=== PATIENT | male | born 1955 | race Caucasian/White ===

== ENCOUNTER 2016-03-31 01:34 | Emergency (ER) | payer OTHER ==
[~2016-03-31] VITALS: Ht 180.3 cm; Wt 70.3 kg
[2016-03-31] MEDS ORDERED: NKM (01:46)
[2016-03-31] MEDS ORDERED: Ketorolac 30mg Inj IV ONE (02:15)
[2016-03-31 02:19] LABS: APPEARANCE,URINE CLEAR; BASOPHILS % (AUTO) 0.7 % (0.0-2.0); EOSINOPHILS % (AUTO) 2.1 % (0.0-3.0); KETONES,URINE 1+ (NEGATIVE); LEUKOCYTE ESTERASE ,URINE NEGATIVE (NEGATIVE); LYMPHOCYTES % (AUTO) 16.1 % (20.0-45.0); MEAN CORPUSCULAR HEMOGLOBIN 30.3 PG (27.0-31.0); MEAN CORPUSCULAR HGB CONC 32.8 G/DL (32.0-36.0); MEAN CORPUSCULAR VOLUME 93 FL (80-99); MEAN PLATELET VOLUME 7.1 FL (6.5-10.1); MONOCYTES % (AUTO) 6.9 % (1.0-10.0); NEUTROPHILS % (AUTO) 74.2 % (45.0-75.0); NITRITE,URINE NEGATIVE (NEGATIVE); PH,URINE 6.5 (4.5-8.0); PLATELET COUNT 273 K/UL (150-450); PROTEIN,URINE NEGATIVE (NEGATIVE); RED BLOOD COUNT 4.51 M/UL (4.70-6.10); RED CELL DISTRIBUTION WIDTH 13.3 % (11.6-14.8); UROBILINOGEN,URINE NORMAL MG/DL (0.0-1.0); WHITE BLOOD COUNT 8.9 K/UL (4.8-10.8)
--- NOTE | 2016-03-31 02:21 | Emergency Room Report ---
History of Present Illness General Chief Complaint: Back Pain-No Injury Source: Patient Present Illness HPI Patient presents with right-sided upper back and flank pain for several days. He denies it being positional. At times it is 10/10 - somewhat radiating to lower back/flank. Aching and somewhat sharp. He's had this before and came in 2006 declined workup with angiography/CT. No fever, cough, sore throat, NVD. He states he's had hypertension since he was a teenager. He has never been treated for this. No dysuria, hematuria, rashes, dizziness, headache. No anxiety or depression. He has not seen a physician in between the time seen in 2006. Allergies: Coded Allergies: No Known Allergies (Unverified , 03/31/16) Patient History Past Medical History: see triage record Pertinent Family History: HTN - mother Social History: Reports: smoking Social History Narrative Ramp Supervisor - Reviewed Nursing Documentation: PMH: Agreed, PSxH: Agreed Nursing Documentation-PMH Hx Hypertension: Yes Review of Systems All Other Systems: negative except mentioned in HPI Physical Exam Vital Signs Date Time Temp Pulse Resp B/P Pulse Ox O2 Delivery O2 Flow Rate FiO2 03/31/16 01:37 97.5 92 22 192/112 98 Room Air Sp02 EP Interpretation: reviewed, normal General Appearance: well appearing, no apparent distress, GCS 15, thin Head: normocephalic Eyes: bilateral eye PERRL, bilateral eye normal inspection ENT: moist mucus membranes Neck: supple Respiratory: lungs clear, normal breath sounds, other - some R upper back ( scapular area) muscle tenderness Cardiovascular #1: regular rate, rhythm Cardiovascular #2: 2+ radial (R), 2+ femoral (R), 2+ femoral (L) Gastrointestinal: normal inspection, normal bowel sounds, non tender, no mass, no bruit, non-distended Genitourinary: CVA tenderness (R) - minimal Musculoskeletal: gait/station normal, normal range of motion Neurologic: alert, oriented x3, grossly normal Psychiatric: mood/affect normal - some denial Skin: normal inspection, warm/dry Medical Decision Making Diagnostic Impression: Primary Impression: Back pain Qualified Codes: M54.9 - Dorsalgia, unspecified Additional Impressions: Hypertension Qualified Codes: I10 - Essential (primary) hypertension Refusal of recommended evaluation ER Course Patient presents with severe back pain with uncontrolled hypertension. Ddx: aneurism, AMI, muscle spasm, renal stone, strain, DJD back. Urgent evaluation with labs, xrays. Treated for pain here. Norvasc begun in ED. EKG normal. Labs unremarkable. Tortuous aorta not normal. Discussed need for evaluation of aorta and heart. Patient understands. Still refuses CT chest/abd. Understands risk of . Also discussed need to treat blood pressure. He understands but does not appear that he will be compliant. Patient insists outpatient observation and treatment. Advised of need for own MD. Stated to patient that if he changes his mind, to return to ED. Laboratory Tests Test 03/31/16 02:10 White Blood Count 8.9 K/UL (4.8-10.8) Red Blood Count 4.51 M/UL (4.70-6.10) L Hemoglobin 13.7 G/DL (14.2-18.0) L Hematocrit 41.7 % (42.0-52.0) L Mean Corpuscular Volume 93 FL (80-99) Mean Corpuscular Hemoglobin 30.3 PG (27.0-31.0) Mean Corpuscular Hemoglobin Concent 32.8 G/DL (32.0-36.0) Red Cell Distribution Width 13.3 % (11.6-14.8) Platelet Count 273 K/UL (150-450) Mean Platelet Volume 7.1 FL (6.5-10.1) Neutrophils (%) (Auto) 74.2 % (45.0-75.0) Lymphocytes (%) (Auto) 16.1 % (20.0-45.0) L Monocytes (%) (Auto) 6.9 % (1.0-10.0) Eosinophils (%) (Auto) 2.1 % (0.0-3.0) Basophils (%) (Auto) 0.7 % (0.0-2.0) Prothrombin Time 10.1 SEC (9.30-11.50) Prothrombin Time INR 1.0 (0.9-1.1) PTT 25 SEC (23-33) Urine Color Pale yellow Urine Appearance Clear Urine pH 6.5 (4.5-8.0) Urine Specific [place] 1.015 (1.005-1.035) Urine Protein Negative (NEGATIVE) Urine Glucose (UA) Negative (NEGATIVE) Urine Ketones 1+ (NEGATIVE) H Urine Occult Blood Negative (NEGATIVE) Urine Nitrite Negative (NEGATIVE) Urine Bilirubin Negative (NEGATIVE) Urine Urobilinogen Normal MG/DL (0.0-1.0) Urine Leukocyte Esterase Negative (NEGATIVE) Sodium Level 140 mEQ/L (135-145) Potassium Level 3.8 mEQ/L (3.4-4.9) Chloride Level 99 mEQ/L (98-107) Carbon Dioxide Level 25 mEQ/L (20-30) Anion Gap 16 (5-15) H Blood Urea Nitrogen 16 mg/dL (7-23) Creatinine 1.1 mg/dL (0.7-1.2) Estimate Glomerular Filtration Rate > 60 mL/min (>60) Glucose Level 180 mg/dL (74-106) H Calcium Level 9.3 mg/dL (8.6-10.2) Total Bilirubin 0.4 mg/dL (0.0-1.2) Aspartate Amino Transferase (AST) 10 U/L (5-40) Alanine Aminotransferase (ALT) 5 U/L (3-41) Alkaline Phosphatase 70 U/L (40-129) Total Creatine Kinase 69 U/L (38-174) Troponin I < 0.30 ng/mL (<=0.30) Pro-B-Type Natriuretic Peptide 75 pg/mL (0-125) Total Protein 6.6 g/dL (6.6-8.7) Albumin 4.1 g/dL (3.5-5.2) Globulin 2.5 g/dL Albumin/Globulin Ratio 1.6 (1.0-2.7) Urine Opiates Screen Negative (NEGATIVE) Urine Barbiturates Screen Negative (NEGATIVE) Phencyclidine (PCP) Screen Negative (NEGATIVE) Urine Amphetamines Screen Negative (NEGATIVE) Urine Benzodiazepines Screen Negative (NEGATIVE) Urine Cocaine Screen Negative (NEGATIVE) Urine Marijuana (THC) Screen Negative (NEGATIVE) EKG Diagnostic Results Rate: normal Rhythm: NSR ST Segments: no acute changes Rhythm Strip Diag. Results EP Interpretation: yes Rhythm: NSR, no PVC's, no ectopy Chest X-Ray Diagnostic Results EP Interpretation: Yes Findings: no consolidation, no effusion, no pneumothorax, no acute cardiopulmonary disease, other - mediastinum tortuous and abnormal Number of Views: 1 Last Vital Signs Date Time Temp Pulse Resp B/P Pulse Ox O2 Delivery O2 Flow Rate FiO2 2/5/17 04:24 97.5 76 16 182/102 99 Room Air Status: improved Disposition: HOME, SELF-CARE Condition: Improved Scripts Ibuprofen* (MOTRIN*) 600 Mg Tablet 600 MG ORAL Q6H Y for For Pain, #20 TAB Prov: Ancelmo Curtis M.D. 03/31/16 Tramadol Hcl* (ULTRAM*) 50 Mg Tablet 50 MG ORAL Q6H Y for For Pain, #10 TAB 0 Refills Prov: Ancelmo Curtis M.D. 03/31/16 Amlodipine Besylate (Norvasc) 5 Mg Tablet 5 MG ORAL DAILY, #30 TAB Prov: Ancelmo Curtis M.D. 03/31/16 Ancelmo Curtis M.D. Mar 31, 2016 02:21
[2016-03-31 02:29] LABS: PROTHROMBIN TIME 10.1 SEC (9.30-11.50)
[2016-03-31 02:34] LABS: ALANINE AMINOTRANSFERASE 5 U/L (3-41); ALBUMIN/GLOBULIN RATIO 1.6 (1.0-2.7); ANION GAP 16 (5-15); ASPARTATE AMINO TRANSFERASE 10 U/L (5-40); CALCIUM 9.3 mg/dL (8.6-10.2); CARBON DIOXIDE 25 mEQ/L (20-30); CHLORIDE 99 mEQ/L (98-107); CREATININE 1.1 mg/dL (0.7-1.2); GLOMERULAR FILTRATION RATE > 60 mL/min (>60); HEMOLYSIS 4; POTASSIUM 3.8 mEQ/L (3.4-4.9); SODIUM 140 mEQ/L (135-145); TOTAL PROTEIN 6.6 g/dL (6.6-8.7)
[2016-03-31 03:00] LABS: TROPONIN I < 0.30 ng/mL (<=0.30)
[2016-03-31 03:30] VITALS: BP 188/101
[2016-03-31] MEDS ORDERED: TRAMADOL HCL50 MG ORAL (04:15)
[2016-03-31] MEDS ORDERED: NORVASC5 MG ORAL (04:15)
[2016-03-31] MEDS ORDERED: IBUPROFEN600 MG ORAL (04:16)
[2016-03-31 04:22] VITALS: BP 182/102
[2016-03-31 04:24] VITALS: BP 182/102
--- NOTE | 2016-03-31 08:43 | Diagnostic Imaging Report ---
Clinical history: Acute chest pain. Technique: Portable AP chest radiograph was obtained. Comparison: 01/14/07. Findings: There is abnormal widening of the mediastinum measuring 9.2 cm in diameter. Findings are suspicious for ascending aortic aneurysm. Further evaluation with CTA of the chest is recommended. The lungs are well inflated and clear. There is no pneumonia or pulmonary edema. There is no pleural effusion or pneumothorax. The heart is not enlarged. The bony thorax is unremarkable. Impression: Abnormal widening of the mediastinum suspicious for ascending aortic aneurysm. Further evaluation with chest CTA is recommended.
--- NOTE | 2016-03-31 16:27 | Cardiology Report ---
APPROVED REPORT EKG Measurement Heart [id number] Normal sinus rhythm Possible Left atrial enlargement Borderline ECG
== END 2016-03-31 04:24 | disposition home or self-care (01) ==
LOC: EDBD 01:34 → EMR 03:03
DX: M54.9 Dorsalgia, unspecified (principal); I10 Essential (primary) hypertension; R07.9 Chest pain, unspecified; Z82.49 Family history of ischemic heart disease and other diseases of the circulatory system; F17.200 Nicotine dependence, unspecified, uncomplicated
CPT/HCPCS: 36415; 71010; 80053; 80300; 81003; 82550; 83880; 84484; 85025; 85610; 85730; 93005; 96374; 99284; J1885

== ENCOUNTER 2016-03-31 12:26 | Emergency (ER) | payer OTHER ==
[~2016-03-31] VITALS: Ht 180.3 cm; Wt 70.3 kg
[~2016-03-31 12:26] MED LIST: IBUPROFEN600 MG ORAL; NKM; NORVASC5 MG ORAL; TRAMADOL HCL50 MG ORAL
[2016-03-31 13:20] VITALS: BP 173/99
[2016-03-31 13:37] VITALS: BP 164/96
--- NOTE | 2016-03-31 14:09 | Emergency Room Report ---
History of Present Illness General Chief Complaint: Hypertension Source: Medical Record Present Illness HPI 60-year-old male presents ED for evaluation. Patient states his blood pressure is high. States his blood pressure has been high from many years now but never started medication. Denies any headaches, blurry vision, nausea or vomiting. Denies chest pain or shortness of breath. Patient was here last night in emergency room for back pain. Was evaluated by emergency physician and was prescribed Norvasc 5 mg. Patient went to pharmacy today to fill the prescription and was told to come to the emergency room because they suggested clonidine instead. Patient states he still feels fine. No other aggravating or relieving factors. Denies any other associated symptoms Allergies: Coded Allergies: No Known Allergies (Unverified , 03/31/16) Patient History Past Medical History: HTN Past Surgical History: none Pertinent Family History: none Social History: Denies: alcohol use, drug use, smoking Immunizations: UTD Reviewed Nursing Documentation: PMH: Agreed, PSxH: Agreed Nursing Documentation-PMH Hx Hypertension: Yes Review of Systems All Other Systems: negative except mentioned in HPI Physical Exam Vital Signs Date Time Temp Pulse Resp B/P Pulse Ox O2 Delivery O2 Flow Rate FiO2 03/31/16 12:40 97.9 70 18 184/108 98 Room Air Sp02 EP Interpretation: reviewed, normal General Appearance: no apparent distress, alert, GCS 15, non-toxic Head: normocephalic, atraumatic Eyes: bilateral eye PERRL, bilateral eye normal inspection ENT: hearing grossly normal, normal pharynx, no angioedema, normal voice Neck: full range of motion, supple/symm/no masses Respiratory: chest non-tender, lungs clear, normal breath sounds, speaking full sentences Cardiovascular #1: regular rate, rhythm, no edema Cardiovascular #2: 2+ carotid (R), 2+ carotid (L), 2+ radial (R), 2+ radial (L) , 2+ dorsalis pedis (R), 2+ dorsalis pedis (L) Gastrointestinal: normal bowel sounds, non tender, soft, non-distended, no guarding, no rebound Rectal: deferred Genitourinary: normal inspection, no CVA tenderness Musculoskeletal: back normal, gait/station normal, normal range of motion, non- tender Neurologic: alert, oriented x3, responsive, motor strength/tone normal, sensory intact, speech normal Psychiatric: judgement/insight normal, memory normal, mood/affect normal, no suicidal/homicidal ideation Reflexes: 3+ bicep (R), 3+ bicep (L), 3+ tricep (R), 3+ tricep (L), 3+ knee (R) , 3+ knee (L) Skin: normal color, no rash, warm/dry, well hydrated Lymphatic: no adenopathy Medical Decision Making Diagnostic Impression: Primary Impression: Hypertension Qualified Codes: I10 - Essential (primary) hypertension ER Course Hospital Course 60-year-old male presents ED complaining of elevated blood pressure. no symptoms Differential diagnoses include: hypertensive urgency, hypertensive emergency, arrythmia, AZ/ACS Clinical course Patient placed on stretcher. After initial history, physical exam reveals a middle-age male in no acute distress. Physical exam is unremarkable Pressure is elevated. Patient has had elevated blood pressure for several years now. This is asymptomatic hypertension. Did not require emergent treatment. I agree with the assessment of the emergency physician that saw the patient last night. Patient can take the Norvasc as directed. Patient does not require prescription for clonidine at this time which are "rescue medications". I. I feel this is a highly complex case requiring extensive working including EKG/Rhythm strip, Xray/CT/US, Blood/urine lab work, repeat exams while in ED, and administration of strong opiates/narcotics for pain control, admission to hospital or close patient follow up. Diagnosis - hypertension Stable and discharged to home. Take Norvasc as prescribed. Instructed to followup with PMD. Return to ED if symptoms recur or worsen Last Vital Signs Date Time Temp Pulse Resp B/P Pulse Ox O2 Delivery O2 Flow Rate FiO2 03/31/16 13:37 97.9 80 18 164/96 99 Room Air Status: improved Disposition: HOME, SELF-CARE Condition: Stable Referrals: Dalton DOSHI,REFERRING (PCP) Patient Instructions: Hypertension, [id number] Additional Instructions: take norvasc as prescribed RATNA NGUYEN M.D. Mar 31, 2016 14:09
== END 2016-03-31 13:37 | disposition home or self-care (01) ==
LOC: EMR 13:29
DX: I10 Essential (primary) hypertension (principal)
CPT/HCPCS: 99283

== ENCOUNTER 2016-04-02 11:55 | Emergency (ER) | payer OTHER ==
[~2016-04-02] VITALS: Ht 180.3 cm; Wt 70.3 kg
[2016-04-02] VITALS (8 sets, daily range): BP systolic 160–208; BP diastolic 91–108
[2016-04-02 12:51] LABS: BASOPHILS % (AUTO) 0.8 % (0.0-2.0); LYMPHOCYTES % (AUTO) 13.5 % (20.0-45.0); MEAN CORPUSCULAR HEMOGLOBIN 30.3 PG (27.0-31.0); MEAN CORPUSCULAR HGB CONC 32.6 G/DL (32.0-36.0); MEAN CORPUSCULAR VOLUME 93 FL (80-99); MEAN PLATELET VOLUME 7.1 FL (6.5-10.1); MONOCYTES % (AUTO) 7.6 % (1.0-10.0); NEUTROPHILS % (AUTO) 77.2 % (45.0-75.0); PLATELET COUNT 244 K/UL (150-450); RED BLOOD COUNT 4.32 M/UL (4.70-6.10); RED CELL DISTRIBUTION WIDTH 13.1 % (11.6-14.8); WHITE BLOOD COUNT 7.3 K/UL (4.8-10.8)
[2016-04-02 13:03] LABS: TROPONIN I < 0.30 ng/mL (<=0.30)
[2016-04-02 13:06] LABS: APPEARANCE,URINE CLEAR; KETONES,URINE NEGATIVE (NEGATIVE); LEUKOCYTE ESTERASE ,URINE NEGATIVE (NEGATIVE); NITRITE,URINE NEGATIVE (NEGATIVE); PH,URINE 5 (4.5-8.0); PROTEIN,URINE NEGATIVE (NEGATIVE); UROBILINOGEN,URINE NORMAL MG/DL (0.0-1.0)
[2016-04-02 13:07] LABS: ALANINE AMINOTRANSFERASE 5 U/L (3-41); ALBUMIN/GLOBULIN RATIO 2.1 (1.0-2.7); ANION GAP 16 (5-15); ASPARTATE AMINO TRANSFERASE 10 U/L (5-40); CALCIUM 9.4 mg/dL (8.6-10.2); CARBON DIOXIDE 26 mEQ/L (20-30); CHLORIDE 96 mEQ/L (98-107); CREATININE 0.9 mg/dL (0.7-1.2); GLOMERULAR FILTRATION RATE > 60 mL/min (>60); HEMOLYSIS 4; POTASSIUM 4.3 mEQ/L (3.4-4.9); SODIUM 138 mEQ/L (135-145); TOTAL PROTEIN 6.3 g/dL (6.6-8.7)
[2016-04-02 13:17] LABS: CKMB 1.8 ng/mL (< 6.7)
--- NOTE | 2016-04-02 13:26 | Diagnostic Imaging Report ---
ndication: Shortness of breath, right-sided chest pain Technique: IV administration nonionic contrast. Spiral acquisitions obtained from the lung bases to the lung apices. Multiplanar and 3-D reconstructions were generated. Total dose length product 750 mGycm. CTDIvol(s) 12, 25, 16 mGy Comparison: None Findings: There is adequate although not optimal opacification of the pulmonary arteries. No evidence of acute pulmonary embolus. Normal caliber pulmonary arteries. No evidence of right ventricular dilatation. No evidence of thoracic aortic aneurysm or dissection. There is an irregular calcified nodule in the left upper lobe which measures 8 x 4 mm. There is also some linear scarring with calcification in the left upper lobe extending to the upper extent of the major fissure. The lungs are otherwise clear, without evidence of mass, infiltrate, or congestion. Pleural spaces are clear. The heart size is normal. There is no evidence of pericardial effusion. No mediastinal or hilar mass or adenopathy. The included portions of the thyroid are unremarkable.. Included upper abdominal anatomy is unremarkable. Impression: Negative for evidence of acute pulmonary embolus, aortic dissection, or other acute thoracic pathology Evidence of old granulomatous disease and post inflammatory change of the left upper lobe The CT scanner at [facility] is accredited by the [employer] and the scans are performed using protocols designed to limit radiation exposure to as low as reasonably achievable to attain images of sufficient resolution adequate for diagnostic evaluation.
--- NOTE | 2016-04-02 14:23 | Emergency Room Report ---
History of Present Illness General Chief Complaint: General Complaint Source: Patient Present Illness HPI This patient was called by my colleague when the radiologist read a chest x-ray that had been done overnight as a widened mediastinum. The patient presents for reevaluation. He states that he developed upper back pain 2 weeks ago. He states that the pain has been ongoing and worsened over the past few days. He was evaluated here and underwent a chest pain workup. He had declined a CT of the chest that was recommended at the time. He is willing to now undergo CT given the findings on chest x-ray. Allergies: Coded Allergies: No Known Allergies (Unverified , 03/31/16) Patient History Past Medical History: see triage record, HTN, COPD Social History: Denies: alcohol use, drug use, smoking Reviewed Nursing Documentation: PMH: Agreed, PSxH: Agreed Nursing Documentation-PMH Past Medical History: No History, Except For Hx Hypertension: Yes Hx COPD: No - chronic spinal pain Review of Systems All Other Systems: negative except mentioned in HPI Physical Exam Vital Signs Date Time Temp Pulse Resp B/P Pulse Ox O2 Delivery O2 Flow Rate FiO2 04/02/16 12:09 97.7 89 20 201/123 100 Room Air Sp02 EP Interpretation: reviewed, normal General Appearance: no apparent distress, alert, GCS 15, non-toxic Head: normocephalic, atraumatic Eyes: bilateral eye PERRL, bilateral eye normal inspection ENT: hearing grossly normal, normal pharynx, no angioedema, normal voice Neck: full range of motion, supple/symm/no masses Respiratory: chest non-tender, lungs clear, normal breath sounds, speaking full sentences Cardiovascular #1: regular rate, rhythm, no edema Gastrointestinal: normal bowel sounds, non tender, soft, non-distended, no guarding, no rebound Rectal: deferred Musculoskeletal: back normal, gait/station normal, normal range of motion, non- tender Neurologic: alert, oriented x3, responsive, motor strength/tone normal, sensory intact, speech normal Psychiatric: judgement/insight normal, memory normal, mood/affect normal, no suicidal/homicidal ideation Skin: normal color, no rash, warm/dry, well hydrated Medical Decision Making Diagnostic Impression: Primary Impression: Back pain Additional Impressions: Hyperglycemia due to type 2 diabetes mellitus Hypertension ER Course This patient presented with upper back pain and abnormal chest x-ray on a previous visit that was concerning for an aortic aneurysm. The patient is also hypertensive with a systolic blood pressure over 200 on arrival. I was concerned this patient may have an aortic dissection given his upper back pain and findings on chest x-ray, so I immediately started esmolol to lower his blood pressure. Patient underwent CT a the chest and there was no acute findings. This appears to have been artifactual on chest x-ray. The patient is hypertensive. He is just starting amlodipine which she took yesterday but did not take today. He also is hyperglycemic with a blood sugar over 200. When I compared labs for this patient this appears to be ongoing. This patient has undiagnosed diabetes. The patient agreed to start metformin and followup with his primary care physician. He does not want to be admitted to the hospital. The patient was given close return precautions and followup instructions. Labs Test 04/02/16 12:25 White Blood Count 7.3 K/UL (4.8-10.8) Red Blood Count 4.32 M/UL (4.70-6.10) Hemoglobin 13.1 G/DL (14.2-18.0) Hematocrit 40.2 % (42.0-52.0) Mean Corpuscular Volume 93 FL (80-99) Mean Corpuscular Hemoglobin 30.3 PG (27.0-31.0) Mean Corpuscular Hemoglobin Concent 32.6 G/DL (32.0-36.0) Red Cell Distribution Width 13.1 % (11.6-14.8) Platelet Count 244 K/UL (150-450) Mean Platelet Volume 7.1 FL (6.5-10.1) Neutrophils (%) (Auto) 77.2 % (45.0-75.0) Lymphocytes (%) (Auto) 13.5 % (20.0-45.0) Monocytes (%) (Auto) 7.6 % (1.0-10.0) Eosinophils (%) (Auto) 1.0 % (0.0-3.0) Basophils (%) (Auto) 0.8 % (0.0-2.0) Prothrombin Time 10.0 SEC (9.30-11.50) Prothromb Time International Ratio 1.0 (0.9-1.1) Activated Partial Thromboplast Time 23 SEC (23-33) Urine Color Yellow Urine Appearance Clear Urine pH 5 (4.5-8.0) Urine Specific [place] 1.020 (1.005-1.035) Urine Protein Negative (NEGATIVE) Urine Glucose (UA) 1+ (NEGATIVE) Urine Ketones Negative (NEGATIVE) Urine Occult Blood Negative (NEGATIVE) Urine Nitrite Negative (NEGATIVE) Urine Bilirubin Negative (NEGATIVE) Urine Urobilinogen Normal MG/DL (0.0-1.0) Urine Leukocyte Esterase Negative (NEGATIVE) Sodium Level 138 mEQ/L (135-145) Potassium Level 4.3 mEQ/L (3.4-4.9) Chloride Level 96 mEQ/L (98-107) Carbon Dioxide Level 26 mEQ/L (20-30) Anion Gap 16 (5-15) Blood Urea Nitrogen 19 mg/dL (7-23) Creatinine 0.9 mg/dL (0.7-1.2) Estimat Glomerular Filtration Rate > 60 mL/min (>60) Glucose Level 218 mg/dL (74-106) Calcium Level 9.4 mg/dL (8.6-10.2) Total Bilirubin 0.5 mg/dL (0.0-1.2) Aspartate Amino Transf (AST/SGOT) 10 U/L (5-40) Alanine Aminotransferase (ALT/SGPT) 5 U/L (3-41) Alkaline Phosphatase 66 U/L (40-129) Total Creatine Kinase 82 U/L (38-174) Creatine Kinase MB 1.8 ng/mL (< 6.7) Creatine Kinase MB Relative Index 2.1 Troponin I < 0.30 ng/mL (<=0.30) Total Protein 6.3 g/dL (6.6-8.7) Albumin 4.3 g/dL (3.5-5.2) Globulin 2.0 g/dL Albumin/Globulin Ratio 2.1 (1.0-2.7) Urine Opiates Screen Negative (NEGATIVE) Urine Barbiturates Screen Negative (NEGATIVE) Phencyclidine (PCP) Screen Negative (NEGATIVE) Urine Amphetamines Screen Negative (NEGATIVE) Urine Benzodiazepines Screen Negative (NEGATIVE) Urine Cocaine Screen Negative (NEGATIVE) Urine Marijuana (THC) Screen Positive (NEGATIVE) EKG Diagnostic Results Rate: normal Rhythm: NSR ST Segments: no acute changes Rhythm Strip Diag. Results EP Interpretation: yes Rate: 80's Rhythm: NSR, no PVC's, no ectopy CT/MRI/US Diagnostic Results CT/MRI/US Diagnostic Results : Imaging Test Ordered: CTA Chest Impression Impression: Negative for evidence of acute pulmonary embolus, aortic dissection , or other acute thoracic pathology Evidence of old granulomatous disease and post inflammatory change of the left upper lobe Last Vital Signs Date Time Temp Pulse Resp B/P Pulse Ox O2 Delivery O2 Flow Rate FiO2 04/02/16 12:10 97.7 85 15 208/102 99 Room Air Status: improved Disposition: HOME, SELF-CARE Condition: Improved Referrals: Dalton DOSHIREFERRING (PCP) NIKKI DIAS D.O. Apr 02, 2016 14:23
[2016-04-02] MEDS ORDERED: GLUCOSE TEST S1 EACH MC (14:44)
[2016-04-02] MEDS ORDERED: METFORMIN HCL500 M1 ORAL (14:44)
[2016-04-02] MEDS ORDERED: COMFORT LANCET1 EACH MC (14:44)
[2016-04-02] MEDS ORDERED: BLOOD GLUCOSE1 EAC1 MC (14:44)
--- NOTE | 2016-04-09 14:52 | Cardiology Report ---
APPROVED REPORT EKG Measurement Heart [id number] Normal sinus rhythm Possible Left atrial enlargement Borderline ECG
== END 2016-04-02 15:02 | disposition home or self-care (01) ==
LOC: EMR 12:22
DX: M54.9 Dorsalgia, unspecified (principal); E11.65 Type 2 diabetes mellitus with hyperglycemia; I10 Essential (primary) hypertension; J44.9 Chronic obstructive pulmonary disease, unspecified
CPT/HCPCS: 36415; 71275; 80053; 80300; 81003; 82550; 82553; 84484; 85025; 85610; 85730; 93005; 96374; 99284; Q9967

== ENCOUNTER 2016-06-14 03:13 | Inpatient (IN) | payer OTHER ==
[2016-06-14] VITALS (7 sets, daily range): BP systolic 102–150; BP diastolic 71–89
[~2016-06-14] VITALS: Ht 185.4 cm; Wt 68.0 kg
[~2016-06-14 03:13] MED LIST changes: +BLOOD GLUCOSE1 EAC1 MC; +COMFORT LANCET1 EACH MC; +GLUCOSE TEST S1 EACH MC; +METFORMIN HCL500 M1 ORAL
[2016-06-14] MEDS ORDERED: traMADol 50mg tab ORAL ONE (04:00)
[2016-06-14] MEDS ORDERED: Ketorolac 30mg Inj IV ONE (04:00)
--- NOTE | 2016-06-14 04:04 | Emergency Room Report ---
History of Present Illness General Chief Complaint: Chest Pain Source: Patient Present Illness HPI Patient presents with severe chest pain. Radiates towards his shoulders back. Has had for 3 months. Incapacitates him and he is unable to work due to pain. He has tried tramadol - not touch pain. Tried ibuprofen, minimal relief. Recently gabapentin begun. He states the pain is severe, but rates it 5/10, burning and aching, chest radiate to R back. He was evaluated by me and found to have a wide mediastinum with hypertension out of control. He returned to have a CT angiogram done. This showed no dissection and no embolus. He is taking medicines for blood pressure at this time. Plus is taking gabapentin and took some ibuprofen. This helped his pain somewhat tonight. Denies any fevers, cough, palpitations, nausea, vomiting. He rarely smokes but used to smoke heavily. CT also showed L apical scarring - felt to be old granulomatous disease. He has been started on antihypertensives. He was told he is diabetic but not started on medicine. Allergies: Coded Allergies: No Known Allergies (Unverified , 03/31/16) Patient History Past Medical History: see triage record Social History: Reports: drug use - THC, smoking Social History Narrative Reviewed Nursing Documentation: PMH: Agreed, PSxH: Agreed Nursing Documentation-PMH Past Medical History: No History, Except For Hx Hypertension: Yes Hx COPD: No - chronic spinal pain Hx Diabetes: Yes - Pre-diabetic Review of Systems All Other Systems: negative except mentioned in HPI Physical Exam Vital Signs Date Time Temp Pulse Resp B/P Pulse Ox O2 Delivery O2 Flow Rate FiO2 06/14/16 03:29 97.5 73 15 116/72 98 Room Air Sp02 EP Interpretation: reviewed, normal General Appearance: well appearing, no apparent distress, GCS 15 Head: normocephalic Eyes: bilateral eye PERRL, bilateral eye normal inspection ENT: moist mucus membranes Neck: supple Respiratory: chest non-tender, lungs clear, normal breath sounds Cardiovascular #1: regular rate, rhythm Cardiovascular #2: 2+ radial (R) Gastrointestinal: normal inspection, normal bowel sounds, non tender, no mass, non-distended Musculoskeletal: back normal, gait/station normal, normal range of motion Neurologic: alert, oriented x3, grossly normal Psychiatric: mood/affect normal Skin: normal inspection, warm/dry Medical Decision Making Diagnostic Impression: Primary Impression: Chest pain Qualified Codes: R07.9 - Chest pain, unspecified Additional Impressions: Hyperglycemia Anemia Qualified Codes: D64.9 - Anemia, unspecified ER Course Patient presents with chest and back pain. This is severe. He's taken multiple different medications without relief. He's on gabapentin. He's incapacitated and unable to work at this time. Differential includes acute coronary syndrome, musculoskeletal pain, costochondritis, muscle spasm, amongst others. The fact he had a recent CT angiogram is encouraging. He's never had treadmill. The patient needs to have laboratory EKG and chest x-ray today will be treated with aspirin and analgesia. Laboratory is remarkable for anemia. EKG was normal sinus rhythm. Chest x-ray shows a widened mediastinum again. The patient is somewhat improved. Aspirin was administered. Patient with debilitating chest pain and risk factors - needs admission and cardiology consultation. The patient is admitted to telemetry Dr. Colon. Laboratory Tests Test 06/14/16 04:00 06/14/16 04:15 White Blood Count 9.5 K/UL (4.8-10.8) Red Blood Count 3.48 M/UL (4.70-6.10) L Hemoglobin 10.1 G/DL (14.2-18.0) L Hematocrit 31.4 % (42.0-52.0) L Mean Corpuscular Volume 90 FL (80-99) Mean Corpuscular Hemoglobin 29.1 PG (27.0-31.0) Mean Corpuscular Hemoglobin Concent 32.2 G/DL (32.0-36.0) Red Cell Distribution Width 13.4 % (11.6-14.8) Platelet Count 274 K/UL (150-450) Mean Platelet Volume 6.4 FL (6.5-10.1) L Neutrophils (%) (Auto) 72.0 % (45.0-75.0) Lymphocytes (%) (Auto) 13.2 % (20.0-45.0) L Monocytes (%) (Auto) 9.3 % (1.0-10.0) Eosinophils (%) (Auto) 4.7 % (0.0-3.0) H Basophils (%) (Auto) 0.8 % (0.0-2.0) Prothrombin Time 9.9 SEC (9.30-11.50) Prothrombin Time INR 1.0 (0.9-1.1) PTT 24 SEC (23-33) Sodium Level 143 mEQ/L (135-145) Potassium Level 4.9 mEQ/L (3.4-4.9) Chloride Level 101 mEQ/L (98-107) Carbon Dioxide Level 28 mEQ/L (20-30) Anion Gap 14 (5-15) Blood Urea Nitrogen 18 mg/dL (7-23) Creatinine 1.1 mg/dL (0.7-1.2) Estimate Glomerular Filtration Rate > 60 mL/min (>60) Glucose Level 177 mg/dL (74-106) H Calcium Level 9.5 mg/dL (8.6-10.2) Total Bilirubin < 0.2 mg/dL (0.0-1.2) Aspartate Amino Transferase (AST) 20 U/L (5-40) Alanine Aminotransferase (ALT) 24 U/L (3-41) Alkaline Phosphatase 60 U/L (40-129) Total Creatine Kinase 72 U/L (38-174) Troponin I < 0.30 ng/mL (<=0.30) Pro-B-Type Natriuretic Peptide 207 pg/mL (0-125) H Total Protein 6.4 g/dL (6.6-8.7) L Albumin 4.0 g/dL (3.5-5.2) Globulin 2.4 g/dL Albumin/Globulin Ratio 1.6 (1.0-2.7) Urine Color Pale yellow Urine Appearance Clear Urine pH 6 (4.5-8.0) Urine Specific [place] 1.015 (1.005-1.035) Urine Protein Negative (NEGATIVE) Urine Glucose (UA) Negative (NEGATIVE) Urine Ketones Negative (NEGATIVE) Urine Occult Blood Negative (NEGATIVE) Urine Nitrite Negative (NEGATIVE) Urine Bilirubin Negative (NEGATIVE) Urine Urobilinogen Normal MG/DL (0.0-1.0) Urine Leukocyte Esterase Negative (NEGATIVE) EKG Diagnostic Results Rate: normal Rhythm: NSR ST Segments: no acute changes Rhythm Strip Diag. Results EP Interpretation: yes Rhythm: NSR, no PVC's, no ectopy Chest X-Ray Diagnostic Results EP Interpretation: Yes Findings: no consolidation, no effusion, no pneumothorax, other - widened mediastinum Number of Views: 1 Last Vital Signs Date Time Temp Pulse Resp B/P Pulse Ox O2 Delivery O2 Flow Rate FiO2 06/14/16 05:21 97.5 85 15 126/89 98 Room Air Status: improved Disposition: ADMITTED INPATIENT Condition: Serious Referrals: Dalton DOSHIREFERRING (PCP) Ancelmo Curtis M.D. Jun 14, 2016 04:04
[2016-06-14] MEDS ORDERED: Morphine Sulfate 4mg/ml Inj IVP ONE (04:15)
[2016-06-14 04:19] LABS: BASOPHILS % (AUTO) 0.8 % (0.0-2.0); EOSINOPHILS % (AUTO) 4.7 % (0.0-3.0); LYMPHOCYTES % (AUTO) 13.2 % (20.0-45.0); MEAN CORPUSCULAR HEMOGLOBIN 29.1 PG (27.0-31.0); MEAN CORPUSCULAR HGB CONC 32.2 G/DL (32.0-36.0); MEAN CORPUSCULAR VOLUME 90 FL (80-99); MEAN PLATELET VOLUME 6.4 FL (6.5-10.1); MONOCYTES % (AUTO) 9.3 % (1.0-10.0); PLATELET COUNT 274 K/UL (150-450); RED BLOOD COUNT 3.48 M/UL (4.70-6.10); RED CELL DISTRIBUTION WIDTH 13.4 % (11.6-14.8); WHITE BLOOD COUNT 9.5 K/UL (4.8-10.8)
[2016-06-14 04:28] LABS: PROTHROMBIN TIME 9.9 SEC (9.30-11.50)
[2016-06-14 04:31] LABS: TROPONIN I < 0.30 ng/mL (<=0.30)
[2016-06-14 04:32] LABS: ALANINE AMINOTRANSFERASE 24 U/L (3-41); ALBUMIN/GLOBULIN RATIO 1.6 (1.0-2.7); ANION GAP 14 (5-15); ASPARTATE AMINO TRANSFERASE 20 U/L (5-40); CALCIUM 9.5 mg/dL (8.6-10.2); CARBON DIOXIDE 28 mEQ/L (20-30); CHLORIDE 101 mEQ/L (98-107); CREATININE 1.1 mg/dL (0.7-1.2); GLOMERULAR FILTRATION RATE > 60 mL/min (>60); HEMOLYSIS 2; POTASSIUM 4.9 mEQ/L (3.4-4.9); SODIUM 143 mEQ/L (135-145); TOTAL PROTEIN 6.4 g/dL (6.6-8.7)
[2016-06-14 04:41] LABS: APPEARANCE,URINE CLEAR; KETONES,URINE NEGATIVE (NEGATIVE); LEUKOCYTE ESTERASE ,URINE NEGATIVE (NEGATIVE); NITRITE,URINE NEGATIVE (NEGATIVE); PH,URINE 6 (4.5-8.0); PROTEIN,URINE NEGATIVE (NEGATIVE); UROBILINOGEN,URINE NORMAL MG/DL (0.0-1.0)
[2016-06-14] MEDS ORDERED: AMLODIPINE BESY10 MG ORAL (05:48)
[2016-06-14] MEDS ORDERED: BENAZEPRIL HCL20 MG ORAL (05:48)
[2016-06-14] MEDS ORDERED: Benazepril 10mg tab ORAL SCH (09:45)
[2016-06-14] MEDS ORDERED: Aspirin Baby 81mg ORAL SCH (09:45)
[2016-06-14] MEDS ORDERED: metFORMIN 500mg tab ORAL SCH (09:45)
--- NOTE | 2016-06-14 11:04 | Diagnostic Imaging Report ---
Indication: Chest pain Technique: One view of the chest Comparison: 03/31/2016 Findings: The heart is upper limit of normal in size. Aorta is tortuous. Upper mediastinum is unremarkable. There is no significant interim change Impression: No acute process This agrees with the preliminary interpretation provided by the emergency room physician
[2016-06-14] MEDS: NovoLOG Insulin Flexpen SUBQ SCH ×2 (12:00→16:05)
--- NOTE | 2016-06-14 12:08 | Consultation ---
History of Present Illness General Date patient seen: Jun 14, 2016 Chief Complaint: Chest Pain Referring physician: Dr. Colon Reason for Consultation: chest pain Present Illness HPI 61 year old male with hx of HTN, DM, [place] [facility] [place] of mid chest pain radiating to back. He had CT chest to rule out aortic aneurysm. He is admitted to telemetry for further work up. Allergies: Coded Allergies: No Known Allergies (Unverified , 03/31/16) Medication History Scheduled Amlodipine Besylate (Norvasc), 5 MG ORAL DAILY Amlodipine Besylate* (Amlodipine Besylate*), 10 MG ORAL DAILY, (Reported) Benazepril Hcl* (Benazepril Hcl*), 20 MG ORAL DAILY, (Reported) Metformin Hcl* (Metformin Hcl*), 500 MG ORAL TWICE A DAY No Known Medications* (NKM - No Known Medications*), 0 ., (Reported) Scheduled PRN Ibuprofen* (Motrin*), 600 MG ORAL Q6H PRN for For Pain Tramadol Hcl* (Ultram*), 50 MG ORAL Q6H PRN for For Pain Durable Medical Equipment Blood Sugar Diagnostic (Glucose Test Strip), 1 STRIP [facility], (DME) Blood-Glucose Meter (Blood Glucose Meter), 1 EACH [facility] TID, (DME) Lancets (Comfort Lancets), 1 EACH [facility], (DME) Patient History Healthcare decision maker Resuscitation status Full Code Advanced Directive on File Past Medical/Surgical History Past Medical/Surgical History: (1) Diabetes (2) Chest pain Review of Systems All Other Systems: negative except mentioned in HPI Physical Exam General Appearance: WD/WN Lines, tubes and drains: peripheral HEENT: normocephalic Neck: non-tender, supple Respiratory/Chest: chest wall non-tender, lungs clear Abdomen: normal bowel sounds, non tender Extremities: normal range of motion, normal inspection Skin Exam: normal pigmentation Last 24 Hour Vital Signs Date Time Temp Pulse Resp B/P Pulse Ox O2 Delivery O2 Flow Rate FiO2 06/14/16 10:03 119/73 06/14/16 10:02 68 119/73 06/14/16 09:12 97.3 71 18 116/76 97 Room Air 06/14/16 09:00 72 06/14/16 08:33 63 17 106/74 97 Room Air 06/14/16 08:16 64 16 Room Air 06/14/16 08:14 97.4 66 16 128/82 99 Room Air 06/14/16 07:20 97.5 72 15 102/71 98 Room Air 06/14/16 06:59 97.5 72 15 102/71 98 Room Air 06/14/16 05:21 97.5 85 15 126/89 98 Room Air 06/14/16 04:49 97.5 06/14/16 04:49 97.5 06/14/16 04:29 97.5 06/14/16 03:49 97.5 88 15 116/72 98 Room Air 06/14/16 03:49 73 15 Room Air 06/14/16 03:29 97.5 73 15 116/72 98 Room Air Laboratory Tests Test 06/14/16 04:00 06/14/16 04:15 White Blood Count 9.5 K/UL (4.8-10.8) Red Blood Count 3.48 M/UL (4.70-6.10) L Hemoglobin 10.1 G/DL (14.2-18.0) L Hematocrit 31.4 % (42.0-52.0) L Mean Corpuscular Volume 90 FL (80-99) Mean Corpuscular Hemoglobin 29.1 PG (27.0-31.0) Mean Corpuscular Hemoglobin Concent 32.2 G/DL (32.0-36.0) Red Cell Distribution Width 13.4 % (11.6-14.8) Platelet Count 274 K/UL (150-450) Mean Platelet Volume 6.4 FL (6.5-10.1) L Neutrophils (%) (Auto) 72.0 % (45.0-75.0) Lymphocytes (%) (Auto) 13.2 % (20.0-45.0) L Monocytes (%) (Auto) 9.3 % (1.0-10.0) Eosinophils (%) (Auto) 4.7 % (0.0-3.0) H Basophils (%) (Auto) 0.8 % (0.0-2.0) Prothrombin Time 9.9 SEC (9.30-11.50) Prothromb Time International Ratio 1.0 (0.9-1.1) Activated Partial Thromboplast Time 24 SEC (23-33) Sodium Level 143 mEQ/L (135-145) Potassium Level 4.9 mEQ/L (3.4-4.9) Chloride Level 101 mEQ/L (98-107) Carbon Dioxide Level 28 mEQ/L (20-30) Anion Gap 14 (5-15) Blood Urea Nitrogen 18 mg/dL (7-23) Creatinine 1.1 mg/dL (0.7-1.2) Estimat Glomerular Filtration Rate > 60 mL/min (>60) Glucose Level 177 mg/dL (74-106) H Calcium Level 9.5 mg/dL (8.6-10.2) Total Bilirubin < 0.2 mg/dL (0.0-1.2) Aspartate Amino Transf (AST/SGOT) 20 U/L (5-40) Alanine Aminotransferase (ALT/SGPT) 24 U/L (3-41) Alkaline Phosphatase 60 U/L (40-129) Total Creatine Kinase 72 U/L (38-174) Troponin I < 0.30 ng/mL (<=0.30) Pro-B-Type Natriuretic Peptide 207 pg/mL (0-125) H Total Protein 6.4 g/dL (6.6-8.7) L Albumin 4.0 g/dL (3.5-5.2) Globulin 2.4 g/dL Albumin/Globulin Ratio 1.6 (1.0-2.7) Urine Color Pale yellow Urine Appearance Clear Urine pH 6 (4.5-8.0) Urine Specific [place] 1.015 (1.005-1.035) Urine Protein Negative (NEGATIVE) Urine Glucose (UA) Negative (NEGATIVE) Urine Ketones Negative (NEGATIVE) Urine Occult Blood Negative (NEGATIVE) Urine Nitrite Negative (NEGATIVE) Urine Bilirubin Negative (NEGATIVE) Urine Urobilinogen Normal MG/DL (0.0-1.0) Urine Leukocyte Esterase Negative (NEGATIVE) Height (Feet): 6 Height (Inches): 1.00 Weight (Pounds): 150 Medications Current Medications Medications (Trade) Dose Ordered Sig/Leo Route PRN Reason Start Time Stop Time Status Last Admin Dose Admin Amlodipine Besylate (Norvasc) 10 mg DAILY ORAL 06/14/16 09:45 07/14/16 09:44 06/14/16 10:02 Aspirin (ASA) 81 mg DAILY ORAL 06/14/16 09:45 07/14/16 09:44 06/14/16 10:01 Benazepril HCl (Lotensin) 20 mg DAILY ORAL 06/14/16 09:45 07/14/16 09:44 06/14/16 10:03 Dextrose (Dextrose 50%) STAT PRN IV Hypoglycemia 06/14/16 11:00 07/14/16 10:59 Heparin Sodium (Porcine) (Heparin 5000 units/ml) 5,000 units EVERY 8 HOURS SUBQ 06/14/16 14:00 07/14/16 13:59 Insulin Aspart (NovoLOG) BEFORE MEALS AND HS SUBQ 06/14/16 12:00 07/14/16 11:59 Metformin HCl (Glucophage) 500 mg TWICE A DAY ORAL 06/14/16 09:45 07/14/16 09:44 06/14/16 10:01 Assessment/Plan Problem List: (1) Hypertension ICD Codes: I10 - Essential (primary) hypertension SNOMED: 89339508 (2) Chest pain ICD Codes: R07.9 - Chest pain, unspecified SNOMED: 89705966 (3) Anemia ICD Codes: D64.9 - Anemia, unspecified SNOMED: 480337944 (4) Diabetes ICD Codes: E11.9 - Type 2 diabetes mellitus without complications SNOMED: 00020607 Assessment/Plan serial ekg, troponin echo anemia w/u CT of abdomen and pelvise OMAIRA CHUNG Jun 14, 2016 12:08
[2016-06-14] MEDS ORDERED: Morphine Sulfate 2mg/ml Inj IVP PRN (12:15)
[2016-06-14 12:56] LABS: TROPONIN I < 0.30 ng/mL (<=0.30)
--- NOTE | 2016-06-14 13:52 | GI Initial Consult Note ---
History of Present Illness General Date patient seen: Jun 14, 2016 Time patient seen: 13:45 Reason for Hospitalization: Chest Pain Referring physician: Dr. Colon Reason for Consultation: EPIGASTRIC PAIN Present Illness HPI Patient presents with severe chest pain. Slight said it. Radiates towards his shoulders back. Sat is for 3 months. Incapacitates them and excess fluid he is having difficulty and unable to work. He is evaluated by me and found to have a wide mediastinum. He returned to have a CT angiogram done. This showed no dissection and no embolus. He is taking medicines for blood pressure at this time. Pulse is taking gabapentin and took some ibuprofen. This helped his pain somewhat tonight. Denies any fevers, cough, palpitations, nausea, vomiting. He rarely smokes. He has been started on antihypertensives. He was told he is diabetic but not started on medicine. GI CONSULT: HPI as noted. GI consulted for epigastric pain and anemia. Pt seen on floor awake, A&Ox4 NAD with no c/o of any epigastric pain at this time. The patient denies any chest pain, states his pain is pain is directed to his back and has lasted over 3 months. He denies any N/V and c/o of seldom diarrhea. He presents today anemic. No history of any endoscopic procedures. Home Meds Active Scripts Lancets (COMFORT LANCETS) 1 Each Each, 1 EACH , #120 Prov:NIKKI DIAS D.O. 04/02/16 Blood Sugar Diagnostic (GLUCOSE TEST STRIP) 1 Each Strip, 1 STRIP , #120 Prov:NIKKI DIAS.O. 04/02/16 Blood-Glucose Meter (BLOOD GLUCOSE METER) 1 Each Each, 1 EACH TID, #1 Prov:NIKKI DIAS.O. 04/02/16 Metformin Hcl* (METFORMIN HCL*) 500 Mg Tablet, 500 MG ORAL TWICE A DAY, #60 TAB Prov:NIKKI DIAS.O. 04/02/16 Ibuprofen* (MOTRIN*) 600 Mg Tablet, 600 MG ORAL Q6H Y for For Pain, #20 TAB Prov:Ancelmo Curtis M.D. 03/31/16 Tramadol Hcl* (ULTRAM*) 50 Mg Tablet, 50 MG ORAL Q6H Y for For Pain, #10 TAB 0 Refills Prov:Ancelmo Curtis M.D. 03/31/16 Amlodipine Besylate (Norvasc) 5 Mg Tablet, 5 MG ORAL DAILY, #30 TAB Prov:Ancelmo Curtis M.D. 03/31/16 Reported Medications Amlodipine Besylate* (AMLODIPINE BESYLATE*) 10 Mg Tablet, 10 MG ORAL DAILY, TAB 06/14/16 Benazepril Hcl* (BENAZEPRIL HCL*) 20 Mg Tablet, 20 MG ORAL DAILY, TAB 06/14/16 No Known Medications* (NKM - No Known Medications*) ., 0 ., 0 Refills 03/31/16 Med list reviewed/reconciled: Yes Allergies: Coded Allergies: No Known Allergies (Unverified , 03/31/16) Patient History History Provided By: Patient PMH Narrative Past Medical History: see triage record Social History: Reports: drug use - THC, smoking Social History Narrative Reviewed Nursing Documentation: PMH: Agreed, PSxH: Agreed Nursing Documentation-PMH Past Medical History: No History, Except For Hx Hypertension: Yes Hx COPD: No - chronic spinal pain Hx Diabetes: Yes - Pre-diabetic Social History: Denies: alcohol use, drug use, other, smoking Review of Systems All Other Systems: negative except mentioned in HPI Physical Exam Vital Signs Date Time Temp Pulse Resp B/P Pulse Ox O2 Delivery O2 Flow Rate FiO2 06/14/16 03:29 97.5 73 15 116/72 98 Room Air Sp02 EP Interpretation: reviewed Labs Laboratory Tests Test 06/14/16 04:00 06/14/16 04:15 06/14/16 12:00 06/14/16 13:00 White Blood Count 9.5 K/UL (4.8-10.8) Red Blood Count 3.48 M/UL (4.70-6.10) L Hemoglobin 10.1 G/DL (14.2-18.0) L Hematocrit 31.4 % (42.0-52.0) L Mean Corpuscular Volume 90 FL (80-99) Mean Corpuscular Hemoglobin 29.1 PG (27.0-31.0) Mean Corpuscular Hemoglobin Concent 32.2 G/DL (32.0-36.0) Red Cell Distribution Width 13.4 % (11.6-14.8) Platelet Count 274 K/UL (150-450) Mean Platelet Volume 6.4 FL (6.5-10.1) L Neutrophils (%) (Auto) 72.0 % (45.0-75.0) Lymphocytes (%) (Auto) 13.2 % (20.0-45.0) L Monocytes (%) (Auto) 9.3 % (1.0-10.0) Eosinophils (%) (Auto) 4.7 % (0.0-3.0) H Basophils (%) (Auto) 0.8 % (0.0-2.0) Erythrocyte Sedimentation Rate Pending Reticulocyte Count Pending Prothrombin Time 9.9 SEC (9.30-11.50) Prothromb Time International Ratio 1.0 (0.9-1.1) Activated Partial Thromboplast Time 24 SEC (23-33) Sodium Level 143 mEQ/L (135-145) Potassium Level 4.9 mEQ/L (3.4-4.9) Chloride Level 101 mEQ/L (98-107) Carbon Dioxide Level 28 mEQ/L (20-30) Anion Gap 14 (5-15) Blood Urea Nitrogen 18 mg/dL (7-23) Creatinine 1.1 mg/dL (0.7-1.2) Estimat Glomerular Filtration Rate > 60 mL/min (>60) Glucose Level 177 mg/dL (74-106) H Calcium Level 9.5 mg/dL (8.6-10.2) Total Bilirubin < 0.2 mg/dL (0.0-1.2) Aspartate Amino Transf (AST/SGOT) 20 U/L (5-40) Alanine Aminotransferase (ALT/SGPT) 24 U/L (3-41) Alkaline Phosphatase 60 U/L (40-129) Total Creatine Kinase 72 U/L (38-174) Troponin I < 0.30 ng/mL (<=0.30) < 0.30 ng/mL (<=0.30) Pro-B-Type Natriuretic Peptide 207 pg/mL (0-125) H Total Protein 6.4 g/dL (6.6-8.7) L Albumin 4.0 g/dL (3.5-5.2) Globulin 2.4 g/dL Albumin/Globulin Ratio 1.6 (1.0-2.7) Urine Color Pale yellow Urine Appearance Clear Urine pH 6 (4.5-8.0) Urine Specific [place] 1.015 (1.005-1.035) Urine Protein Negative (NEGATIVE) Urine Glucose (UA) Negative (NEGATIVE) Urine Ketones Negative (NEGATIVE) Urine Occult Blood Negative (NEGATIVE) Urine Nitrite Negative (NEGATIVE) Urine Bilirubin Negative (NEGATIVE) Urine Urobilinogen Normal MG/DL (0.0-1.0) Urine Leukocyte Esterase Negative (NEGATIVE) Iron Level Pending Unsaturated Iron Binding Pending Lactate Dehydrogenase Pending Carcinoembryonic Antigen Pending Vitamin B12 Level Pending Folate Pending Thyroid Stimulating Hormone (TSH) Pending General Appearance: normal inspection, well appearing, no apparent distress, alert Head: normocephalic EENT: normal ENT inspection Neck: full range of motion, supple Respiratory: normal inspection, normal breath sounds, no respiratory distress Cardiovascular: normal peripheral pulses, normal rate Gastrointestinal: normal inspection, non tender, soft Rectal: deferred Neurologic: normal inspection, alert, oriented x3, responsive Psychiatric: normal inspection Skin: normal inspection, normal color Lymphatic: no adenopathy Current Medications Current Medications Medications (Trade) Dose Ordered Sig/Leo Route PRN Reason Start Time Stop Time Status Last Admin Dose Admin Amlodipine Besylate (Norvasc) 10 mg DAILY ORAL 06/14/16 09:45 07/14/16 09:44 06/14/16 10:02 Aspirin (ASA) 81 mg DAILY ORAL 06/14/16 09:45 07/14/16 09:44 06/14/16 10:01 Benazepril HCl (Lotensin) 20 mg DAILY ORAL 06/14/16 09:45 07/14/16 09:44 06/14/16 10:03 Dextrose (Dextrose 50%) STAT PRN IV Hypoglycemia 06/14/16 11:00 07/14/16 10:59 Heparin Sodium (Porcine) (Heparin 5000 units/ml) 5,000 units EVERY 8 HOURS SUBQ 06/14/16 14:00 07/14/16 13:59 Insulin Aspart (NovoLOG) BEFORE MEALS AND HS SUBQ 06/14/16 12:00 07/14/16 11:59 Metformin HCl (Glucophage) 500 mg TWICE A DAY ORAL 06/16/16 17:00 07/16/16 16:59 Morphine Sulfate (Morphine Sulfate) 2 mg Q4H PRN IVP PAIN 4-10 06/14/16 12:15 06/21/16 12:14 06/14/16 12:26 GI: Plan Problems: (1) Spine pain (2) Anemia (3) Diabetes (4) Back pain Plan symptomatic treatment at this time anemia work up OB stool uncollected GI prophylaxis >> H2 PT evaluation ADA diet fu APCT fu labs recommend outpatient egd/colonoscopy >> patient refused recommend ortho consult for back pain Discussed with Dr. Wright. Thank you for referring this patient, we will follow. Dory Garcia N.P. Jun 14, 2016 13:52
[2016-06-14 13:55] LABS: LACTATE DEHYDROGENASE 141 U/L (135-230)
[2016-06-14 13:57] LABS: RETICULOCYTE COUNT 1.6 % (0.0-2.0)
[2016-06-14] MEDS ORDERED: Heparin 5000 units/ml inj SUBQ SCH (14:00)
[2016-06-14 14:28] LABS: HEMOLYSIS 1; IRON 38 ug/dL (59-158); TOTAL IRON BINDING CAPACITY 330 ug/dL (250-400)
[2016-06-14] MEDS ORDERED: Morphine Sulfate 2mg/ml Inj IVP ONE (14:40)
[2016-06-14] MEDS ORDERED: IRON325 M1 PO (15:15)
[2016-06-14] MEDS ORDERED: PROTONIX40 MG ORAL (15:15)
[2016-06-14] MEDS ORDERED: ROBAXIN-750750 MG PO (15:16)
[2016-06-14] MEDS ORDERED: LYRICA50 MG ORAL (15:16)
--- NOTE | 2016-06-14 15:16 | History & Physical ---
History and Physical History & Physicial Reza Colon MD Jun 14, 2016 15:16
--- NOTE | 2016-06-14 16:43 | Diagnostic Imaging Report ---
Clinical Indication: Epigastric pain and anemia Technique: Patient given oral contrast. IV administration nonionic contrast. Venous phase spiral acquisition obtained through the abdomen and pelvis. Multiplanar reconstructions were generated. Total dose length product 613 mGycm. CTDIvol(s) 13 mGy. Dose reduction achieved using automated exposure control Comparison: None Findings: There is circumferential somewhat irregular thickening of the gastric antral wall. The wall measures up to 2 cm thick and the overall area of abnormality measures approximately 5 cm length. The remainder of the stomach is unremarkable. The distal esophagus is unremarkable. No small bowel distention or small bowel wall thickening. The appendix is normal. There is no evidence of diverticulosis or diverticulitis. No free or loculated intraperitoneal air or fluid. The liver, gallbladder, bile ducts, pancreas, spleen, adrenals are unremarkable. The right kidney demonstrates a subcentimeter low-attenuation lesion which is too small to characterize. Left kidney is unremarkable. No retroperitoneal or mesenteric mass or adenopathy. No pelvic mass or adenopathy. The included lung bases are clear except for minimal dependent atelectatic changes. The bones are unremarkable. Impression: Irregular circumferential thickening of the gastric antral wall. This is concerning for neoplasm or inflammation. Consider endoscopy for better characterization. No other acute or significant abnormality Subcentimeter low-attenuation right renal lesion, too small to characterize, most likely benign simple cortical cysts. No further followup necessary The CT scanner at [facility] is accredited by the [employer] and the scans are performed using protocols designed to limit radiation exposure to as low as reasonably achievable to attain images of sufficient resolution adequate for diagnostic evaluation.
[2016-06-14] MEDS ORDERED: Morphine Sulfate 4mg/ml Inj IVP PRN (18:40)
[2016-06-14] MEDS ORDERED: Famotidine 20 MG/ 2ML VIAL IVP SCH (21:00)
--- NOTE | 2016-06-14 22:37 | History and Physical Report ---
DATE OF ADMISSION: 06/14/2016 CHIEF COMPLAINT: Lower back pain radiating to the abdominal area. HISTORY OF PRESENT ILLNESS: This is a 61-year-old very delightful [place]i-speaking gentleman with past medical history significant for diabetes type 2 and hypertension, who was presented to the hospital complained about the mid back area pain over past three and half months got progressively worsening over past 24 hours and unable to control the pain with the pain medication and subsequently decided to come to the emergency room. Shortly after initial evaluation in the emergency, the patient was admitted to the hospital with back pain radiating to the abdominal area. PAST MEDICAL HISTORY/PAST SURGICAL HISTORY: As above. History of diabetes type 2 and hypertension as well as low back pain. MEDICATIONS: Medications at home significant for metformin 500 mg twice a day, tramadol 50 mg q. 6 hours p.r.n., ibuprofen 600 mg q. 6 hours p.r.n., benazepril 20 mg, and Norvasc 10 mg p.o. daily. ALLERGIES: No known drug allergies. SOCIAL HISTORY: The patient denies any substance abuse. Smokes marijuana occasionally. He quit smoking about five years ago. He was a social smoker about three to four cigarettes per week may be while he was drinking socially. Denies any substance abuse. FAMILY HISTORY: Noncontributory. Mother has a history of high blood pressure and diabetes. No heart disease runs in the family. REVIEW OF SYSTEMS: Mostly as above. Denies any dysuria, frequency, or hematochezia. Denies any bright red blood per rectum. Denies any dark stools. Denies any loss of consciousness. Denies any suicidal or homicidal ideation. PHYSICAL EXAMINATION: VITAL SIGNS: On admission, blood pressure of 116/72, pulse 73, respirations 15, and temperature 97.5 degrees. GENERAL: The patient awake and responsive, no acute distress. HEAD AND NECK: Pupils are reactive to light. Extraocular movements are intact. NECK: Supple. No JVD. LUNGS: Good air entry. No rales. HEART: S1, S2. Regular rhythm. No gallops. ABDOMEN: Soft, nondistended, and nontender. Positive bowel sounds. EXTREMITIES: No cyanosis, clubbing, or edema. NEUROLOGIC: Cranial nerves II through XII are grossly intact. Moves all four extremities. LABORATORY AND DIAGNOSTIC DATA: Laboratory on admission from the ER, sodium 143, potassium 4.9, chloride 101, bicarbonate 28, BUN 18, and creatinine 1.1, GFR is greater than 60. Glucose is 177. Calcium is 9.5. The patient's iron is 38, TIBC 33, and saturations 12. Total bilirubin is less than 0.2. AST of 20 and ALT of 24. Lactic acid is 141. First and second troponin is negative. BNP of 207. Vitamin D level over 2000. CEA is 0.5. TSH is 2.23. PT of 9.9, INR 1.0, and PTT of 24. UA is grossly negative. WBC of 9.5, hemoglobin 10.1, hematocrit 31, and platelet 274,000. ESR 34. Reticulocyte count is 1.6. The patient had a chest x-ray, no acute process. EKG normal sinus rhythm, ventricular rate 67, no ST elevation or T-wave inversion, essentially unremarkable. A 2D echo shows an ejection fraction of 55% with no evidence of ventricular hypertrophy. The patient has no pulmonic regurgitation, this is a preliminary results. ASSESSMENT: 1. Mid lower back pain. 2. Iron-deficiency anemia. 3. Diabetes type 2. 4. Hypertension. PLAN: At this time, discussed with the patient extensively with regard to the finding, anemia. CT scan of the abdomen and pelvis still pending. We will consider to discharge the patient if the CT scan is essentially unremarkable and I advised the patient need to have the EGD and colonoscopy to be done as outpatient. He confirmed that do not take Neurontin or ibuprofen. Start the patient on a Protonix 40 mg twice a day, iron sulfate 325 mg three times a day, Lyrica 50 mg three times a day, Robaxin 50 mg p.o. t.i.d. in conjunction of home medication to be discharged with and follow up with the primary care doctor within one week if the CT scan is unremarkable . Reza Colon M.D. DR: Phyllis JOB#: [id number] CC:
[2016-06-16] MEDS ORDERED: metFORMIN 500mg tab ORAL SCH (17:00)
--- NOTE | 2016-06-16 18:14 | Cardiology Report ---
APPROVED REPORT EXAM: Two-dimensional and M-mode echocardiogram with Doppler and color Doppler. INDICATION Chest Pain M-Mode DIMENSIONS IVSd1.0 (0.7-1.1cm)Left Atrium (MM)4.0 (1.6-4.0cm) LVDd4.6 (3.5-5.6cm)Aortic Root2.5 (2.0-3.7cm) PWd0.6 (0.7-1.1cm)Aortic Cusp Exc.2.0 (1.5-2.0cm) LVDs3.8 (2.5-4.0cm) PWs0.9 cm Normal left ventricular chamber size, systolic function and wall motion. Left ventricular ejection fraction estimated to be 55 -60 %. No evidence of ventricular hypertrophy. Anterior Echo-free space, may be due to pericardial fat or effusion. All other cardiac chamber sizes are within normal limits. Mild focal aortic valve sclerosis with adequate cusp excursion. Mildly thickened mitral valve leaflets with normal excursion. Mild mitral annulus and aortic root calcification. Normal pulmonic valve structure. Normal tricuspid valve structure. IVC at normal size with physiologic collapse. A color flow and spectral Doppler study was performed and revealed: Mild aortic regurgitation. Trace mitral regurgitation. Mitral inflow velocities indicates possible pseudo normalization pattern implying significant left ventricular diastolic dysfunction (Grade II). Mild tricuspid regurgitation. Tricuspid systolic velocities suggests peak right ventricular systolic pressure of 34 mmHg. No pulmonic regurgitation present.
--- NOTE | 2016-06-17 12:23 | Discharge Summary ---
Discharge Summary Hospital Course Date of Admission Jun 14, 2016 at 04:19 Date of Discharge Jun 14, 2016 at 17:15 Admitting Diagnosis ACUTE CORONARY SYNDROME LAURA Degroot is a 61 year old male who was admitted on Jun 14, 2016 at 04: 19 for Acute Coronary Syndrome Hospital Course dc summary #[id number] Discharge Medications Continued Medications: Amlodipine Besylate* (Amlodipine Besylate*) 10 Mg Tablet 10 MG ORAL DAILY, TAB Benazepril Hcl* (Benazepril Hcl*) 20 Mg Tablet 20 MG ORAL DAILY, TAB Ferrous Sulfate (Iron) 325 Mg Tablet 325 MG PO TWICE A DAY, TAB Metformin Hcl* (Metformin Hcl*) 500 Mg Tablet 500 MG ORAL TWICE A DAY, #60 TAB Methocarbamol* (Robaxin-750*) 750 Mg Tablet 750 MG PO TID, #21 TAB 0 Refills Pantoprazole* (Protonix*) 40 Mg Tablet.dr 40 MG ORAL EVERY 12 HOURS, TAB Pregabalin (Lyrica) 50 Mg Capsule 50 MG ORAL THREE TIMES A DAY, CAP Tramadol Hcl* (Ultram*) 50 Mg Tablet 50 MG ORAL Q6H PRN for For Pain, #10 TAB 0 Refills Discontinued Medications: Amlodipine Besylate (Norvasc) 5 Mg Tablet 5 MG ORAL DAILY, #30 TAB Ibuprofen* (Motrin*) 600 Mg Tablet 600 MG ORAL Q6H PRN for For Pain, #20 TAB No Known Medications* (NKM - No Known Medications*) . 0 ., 0 Refills Discharge Condition Upon Discharge: stable Discharge Disposition Patient was discharged to Home (01) Discharge Diagnoses: Discharge Instructions Discharge Instructions Special Instructions I have been assigned to complete a D/C Summary on this account. I was not involved in the patient management Angelika Chavez NP ([place]) Jun 17, 2016 12:23
--- NOTE | 2016-06-17 23:48 | Discharge Summary 2 SIG ---
DATE OF ADMISSION: 06/14/2016 DATE OF DISCHARGE: 06/14/2016 REASON FOR ADMISSION: This 61-year-old male came to emergency room complaining of mid back pain radiating down his abdomen. Pain continued for three and a half months and getting progressively worse over the past 24 hours. The patient was unable to control pain with pain medication and came to emergency room for evaluation. The patient has a history of diabetes type 2 and hypertension. Workup in the emergency room revealed troponin negative and proBNP 207. Chest x-ray was negative for any acute cardiopulmonary disease. EKG shows normal sinus rhythm. No ST changes or T-wave inversion. The patient was admitted for further management. Of note, the patient noted to be anemic. Hemoglobin was 10.1 and hematocrit 31.4. ADMITTING DIAGNOSES: 1. Low back pain. 2. Anemia. 3. Hypertension. 4. Diabetes. HOSPITAL STAY: The patient was admitted. The patient had a CT angio done in the emergency room few months ago, which revealed no evidence of pulmonary emboli or aortic dissection. The patient is using gabapentin, ibuprofen, and tramadol for pain control. No fever. No chills. The patient undergone echocardiogram, which revealed preserved ejection fraction of 55% to 60%. No evidence of ventricular hypertrophy. significant left ventricular diastolic dysfunction. CT of the abdomen and pelvis revealed irregular thickening of the gastric antral wall measuring up to 2 cm thick and overall area of abnormality of bowel 5 cm. The remainder of stomach was unremarkable. Distal esophagus was unremarkable. No small bowel distention or small bowel wall thickening. The appendix is normal. No evidence of diverticulosis or diverticulitis. No free or loculated intraperitoneal air or the fluid. The liver, gallbladder, bile ducts, pancreas, spleen and adrenals are all unremarkable. The patient has irregular circumferential thickening of the gastric antral wall with concern for neoplasm versus inflammation. The patient refused endoscopy and colonoscopy ordered by the GI specialist who was involved in the care of this patient. The patient wanted to go home. Troponin x2 were negative. ProBNP was 207. Iron panel revealed low iron with normal B12 and folate. Urinalysis was negative. The patient started on iron supplement, PPI, Lyrica, and Robaxin for pain control. Ibuprofen discontinued. The patient is stable for discharge. Due to the rapid and unexpected improvement in the patient's condition, the patient was discharged in one day. DISCHARGE DIAGNOSES: 1. Iron deficiency anemia. 2. Hypertension. 3. Diabetes. 4. Low back pain. 5. Thickening of gastric antral wall, neoplasm versus inflammation. DISCHARGE MEDICATIONS: See medication reconciliation list. DISCHARGE INSTRUCTIONS: The patient is to follow up with the primary medical doctor, with referral to endoscopy and colonoscopy. This patient refused to have it as an inpatient. Reza Colon M.D. I have been assigned to dictate discharge summary on this account and I was not involved in the patient's management. Angelika Marrerobuffalo general medical centerJesse N.PMeera DR: JOS JOB#: [id number] CC:
== END 2016-06-14 17:15 | disposition home or self-care (01) | DRG 552 ==
LOC: EMR 03:50 → 2E 04:19 → EMR 08:04
DX: M54.5 Low back pain (principal); I10 Essential (primary) hypertension; R07.9 Chest pain, unspecified; E11.9 Type 2 diabetes mellitus without complications; D50.9 Iron deficiency anemia, unspecified; R10.13 Epigastric pain; Z87.891 Personal history of nicotine dependence
CPT/HCPCS: 36415; 71010; 74177; 80053; 81003; 82378; 82550; 82607; 82746; 82962; 83540; 83550; 83615; 83880; 84443; 84484; 85025; 85044; 85610; 85651; 85730; 93005; 93306; J1815

== ENCOUNTER 2017-01-17 20:24 | Emergency (ER) | payer OTHER ==
[~2017-01-17] VITALS: Ht 182.9 cm; Wt 65.8 kg
[~2017-01-17 20:24] MED LIST changes: +AMLODIPINE BESY10 MG ORAL; +BENAZEPRIL HCL20 MG ORAL; +IRON325 M1 PO; +LYRICA50 MG ORAL; +PROTONIX40 MG ORAL; +ROBAXIN-750750 MG PO
[2017-01-17 20:30] VITALS: BP 168/92
[2017-01-17 21:15] LABS: BASOPHILS % (AUTO) 1.3 % (0.0-2.0); EOSINOPHILS % (AUTO) 1.6 % (0.0-3.0); LYMPHOCYTES % (AUTO) 20.9 % (20.0-45.0); MEAN CORPUSCULAR HEMOGLOBIN 31.3 PG (27.0-31.0); MEAN CORPUSCULAR HGB CONC 31.5 G/DL (32.0-36.0); MEAN CORPUSCULAR VOLUME 99 FL (80-99); MEAN PLATELET VOLUME 7.4 FL (6.5-10.1); MONOCYTES % (AUTO) 8.3 % (1.0-10.0); PLATELET COUNT 175 K/UL (150-450); RED CELL DISTRIBUTION WIDTH 12.9 % (11.6-14.8); WHITE BLOOD COUNT 5.3 K/UL (4.8-10.8)
[2017-01-17 21:31] LABS: CHLORIDE 113 MMOL/L (98-107); POTASSIUM 3.1 MMOL/L (3.5-5.1); SODIUM 144 MMOL/L (136-145)
[2017-01-17 21:36] LABS: ANION GAP 10 mmol/L (5-15); CARBON DIOXIDE 22 MMOL/L (21-32)
[2017-01-17 21:40] VITALS: BP 152/88
[2017-01-17 21:56] LABS: ALCOHOL < 3 mg/dL
--- NOTE | 2017-01-17 21:59 | Emergency Room Report ---
History of Present Illness General Chief Complaint: Syncope Source: EMS Present Illness HPI Patient is a 61-year-old male who presented with EMS after reported syncopal episode. Patient had no prior history of cardiac disease. The patient reports having prior history of diabetes. He denies any chest pain or shortness of breath. He reports having some right-sided headache as well as some facial pain. Allergies: Coded Allergies: No Known Allergies (Unverified , 03/31/16) Patient History Past Medical History: see triage record Reviewed Nursing Documentation: PMH: Agreed, PSxH: Agreed Nursing Documentation-PMH Past Medical History: No History, Except For Hx Cardiac Problems: Yes Hx Hypertension: Yes Hx COPD: No - chronic spinal pain Hx Diabetes: Yes Hx Cancer: No Hx Gastrointestinal Problems: No Hx Neurological Problems: No Review of Systems All Other Systems: negative except mentioned in HPI Physical Exam Vital Signs Date Time Temp Pulse Resp B/P (MAP) Pulse Ox O2 Delivery O2 Flow Rate FiO2 01/17/17 20:15 98.1 93 16 179/93 97 Room Air Sp02 EP Interpretation: reviewed, normal General Appearance: normal inspection, well appearing, no apparent distress, alert, GCS 15 Head: atraumatic ENT: normal ENT inspection, hearing grossly normal, normal voice Neck: normal inspection, full range of motion, supple, no bony tend Respiratory: normal inspection, lungs clear, normal breath sounds, no respiratory distress, no retraction, no wheezing Cardiovascular #1: regular rate, rhythm, no edema Gastrointestinal: normal inspection, normal bowel sounds, non tender, soft, no guarding, no hernia Genitourinary: no CVA tenderness Musculoskeletal: normal inspection, back normal, normal range of motion Neurologic: normal inspection, alert, oriented x3, responsive, unix consultant III-XII nml as tested, motor strength/tone normal, speech normal Psychiatric: normal inspection, judgement/insight normal, mood/affect normal Skin: normal inspection, normal color, no rash Medical Decision Making Diagnostic Impression: Primary Impression: Syncope Additional Impressions: Diabetes Arachnoid cyst ER Course Patient presented for syncope. Differential diagnosis included but was not limited to arrhythmia, orthostatic hypotension, hypovolemia, vasovagal, anemia among others. Because of complexity of patient's case laboratory testing and imaging studies were ordered. I EKG interpreted by me showed normal sinus rhythm with a rate of [address] or T wave changes. Laboratory testing showed mild hypokalemia. Patient was given oral potassium. CT the head was ordered due to patient's headache. CT the head read by radiology showed right temporal arachnoid cyst. There is no evident acute CVA or hemorrhage. The patient is advised not to drive or operate heavy machinery or to climb ladders. Patient is advised followup with his primary care physician for outpatient neurology referral. At the time of discharge patient is awake alert oriented without any complaints pain Labs Test 01/17/17 21:00 White Blood Count 5.3 K/UL (4.8-10.8) Red Blood Count 4.30 M/UL (4.70-6.10) Hemoglobin 13.4 G/DL (14.2-18.0) Hematocrit 42.7 % (42.0-52.0) Mean Corpuscular Volume 99 FL (80-99) Mean Corpuscular Hemoglobin 31.3 PG (27.0-31.0) Mean Corpuscular Hemoglobin Concent 31.5 G/DL (32.0-36.0) Red Cell Distribution Width 12.9 % (11.6-14.8) Platelet Count 175 K/UL (150-450) Mean Platelet Volume 7.4 FL (6.5-10.1) Neutrophils (%) (Auto) 68.0 % (45.0-75.0) Lymphocytes (%) (Auto) 20.9 % (20.0-45.0) Monocytes (%) (Auto) 8.3 % (1.0-10.0) Eosinophils (%) (Auto) 1.6 % (0.0-3.0) Basophils (%) (Auto) 1.3 % (0.0-2.0) Sodium Level 144 MMOL/L (136-145) Potassium Level 3.1 MMOL/L (3.5-5.1) Chloride Level 113 MMOL/L (98-107) Carbon Dioxide Level 22 MMOL/L (21-32) Anion Gap 10 mmol/L (5-15) Blood Urea Nitrogen 18 mg/dL (7-18) Creatinine 1.1 MG/DL (0.55-1.30) Estimat Glomerular Filtration Rate > 60 mL/min (>60) Glucose Level 178 MG/DL (74-106) Calcium Level 8.8 MG/DL (8.5-10.1) Total Bilirubin 0.5 MG/DL (0.2-1.0) Aspartate Amino Transf (AST/SGOT) 12 U/L (15-37) Alanine Aminotransferase (ALT/SGPT) 13 U/L (12-78) Alkaline Phosphatase 57 U/L (46-116) Troponin I 0.001 ng/mL (0.000-0.056) Pro-B-Type Natriuretic Peptide 70 pg/mL (0-125) Total Protein 7.0 G/DL (6.4-8.2) Albumin 3.7 G/DL (3.4-5.0) Globulin 3.3 g/dL Albumin/Globulin Ratio 1.1 (1.0-2.7) Serum Alcohol < 3 mg/dL EKG Diagnostic Results Rate: normal Rhythm: NSR ST Segments: no acute changes Rhythm Strip Diag. Results EP Interpretation: yes Rhythm: NSR, no PVC's, no ectopy Last Vital Signs Date Time Temp Pulse Resp B/P (MAP) Pulse Ox O2 Delivery O2 Flow Rate FiO2 01/17/17 20:15 98.1 93 16 179/93 97 Room Air Status: improved Disposition: HOME, SELF-CARE Condition: Stable Patient Instructions: Syncope Additional Instructions: Arachnoid cyst on CT. Follow up with neurology rAvind Rowley Jan 17, 2017 21:59
[2017-01-17 22:01] LABS: ALANINE AMINOTRANSFERASE 13 U/L (12-78); ALBUMIN/GLOBULIN RATIO 1.1 (1.0-2.7); ASPARTATE AMINO TRANSFERASE 12 U/L (15-37); CALCIUM 8.8 MG/DL (8.5-10.1); CREATININE 1.1 MG/DL (0.55-1.30); GLOMERULAR FILTRATION RATE > 60 mL/min (>60)
[2017-01-17 22:05] VITALS: BP 152/88
--- NOTE | 2017-01-18 10:02 | Diagnostic Imaging Report ---
Indication: Right-sided weakness/syncope Technique: Continuous helical CT scanning of the head was performed utilizing automated exposure control without intravenous contrast material. Axial and coronal reconstructions were obtained. Comparison: None CT dose: Total DLP 1319 mGycm; CTDI vol 70.4 mGy Findings: There is no acute intracranial hemorrhage or cortical edema. There is an approximately 4.6 x 4.3 cm CSF density extra-axial probable arachnoid cyst of the left middle cranial fossa. There is no shift of midline structures. The posterior fossa and fourth ventricle are unremarkable. Sellar and suprasellar regions are grossly unremarkable. Visualized mastoid air cells and paranasal sinuses are unremarkable. No focal lesions of the bony calvarium or soft tissues of the scalp are seen. Impression: No intracranial hemorrhage or focal cortical edema. MRI may be obtained for more sensitive evaluation. Approximately 4.6 x 4.3 cm CSF density extra-axial probable arachnoid cyst of the left middle cranial fossa. The CT scanner at [facility] is accredited by the [employer] and the scans are performed using protocols designed to limit radiation exposure to as low as reasonably achievable to attain images of sufficient resolution adequate for diagnostic evaluation.
--- NOTE | 2017-01-19 15:32 | Cardiology Report ---
APPROVED REPORT EKG Measurement Heart [id number] Normal sinus rhythm Normal ECG
== END 2017-01-17 22:10 | disposition home or self-care (01) ==
LOC: EDBD 20:24 → EMR 22:10
DX: R55 Syncope and collapse (principal); E11.9 Type 2 diabetes mellitus without complications; G93.0 Cerebral cysts; I10 Essential (primary) hypertension
CPT/HCPCS: 36415; 70450; 80053; 83880; 84484; 85025; 93005; 99284; G0480; 80329; J8499